=== PATIENT | male | born 1970 | race Caucasian/White ===

== ENCOUNTER 2021-03-19 16:50 | Emergency (ER) | payer OTHER ==
[~2021-03-19] VITALS: Ht 188 cm; Wt 100.0 kg
[2021-03-19] MEDS ORDERED: normal saline 1000ML IV soln IVB ONE (18:15)
[2021-03-19 18:50] LABS: BASOPHILS % (AUTO) 0.3 % (0-1); EOSINOPHILS # (AUTO) 0.1 X10'3 (0-0.9); EOSINOPHILS % (AUTO) 0.6 % (0-6); HEMATOCRIT 42.8 % (42.0-52.0); HEMOGLOBIN 14.4 g/dl (14.0-17.9); LYMPHOCYTES # (AUTO) 1.3 X10'3 (1.1-4.8); LYMPHOCYTES % (AUTO) 9.6 % (21-51); MEAN CORPUSCULAR HEMOGLOBIN 29.6 PG (27.0-31.0); MEAN CORPUSCULAR HGB CONC 33.7 g/dL (33.0-36.5); MEAN CORPUSCULAR VOLUME 87.9 FL (78-98); MEAN PLATELET VOLUME 7.4 FL (7.4-10.4); MONOCYTES % (AUTO) 7.1 % (2-12); NEUTROPHILS # (AUTO) 11.5 X10'3 (1.8-7.7); NEUTROPHILS % (AUTO) 82.4 % (42-75); PLATELET COUNT 247 X10'3 (140-440); RED BLOOD COUNT 4.86 X10'6 (4.70-6.10); RED CELL DISTRIBUTION WIDTH 14.4 % (11.5-14.5); WHITE BLOOD COUNT 13.9 X10'3 (4.5-11.0)
[2021-03-19 18:59] LABS: ALANINE AMINOTRANSFERASE 38 U/L (12-78); ALBUMIN 3.7 G/DL (3.4-5.0); ALBUMIN/GLOBULIN RATIO 1.4 (1.1-1.5); ALKALINE PHOSPHATASE 80 IU/L (46-116); ANION GAP 11 (8-16); ASPARTATE AMINO TRANSFERASE 24 U/L (10-37); BILIRUBIN,TOTAL 0.7 MG/DL (0.1-1.0); BLOOD UREA NITROGEN 14 MG/DL (7-18); BUN/CREATININE RATIO 12.7 (5.4-32.0); CHLORIDE 99 MMOL/L (99-107); GLUCOSE 104 MG/DL (70-104); POTASSIUM 3.6 MMOL/L (3.5-5.1); SODIUM 133 MMOL/L (135-145); TOTAL CARBON DIOXIDE 23.3 MMOL/L (24-32); TOTAL PROTEIN 6.4 G/DL (6.4-8.2); eGFR 71 ML/MIN
[2021-03-19] MEDS ORDERED: CYCL-1 PO (19:54)
[2021-03-19] MEDS ORDERED: cyclobenzaprine 10mg tablet PO ONE (20:00)
[2021-03-19 20:20] VITALS: BP 145/83
== END 2021-03-19 20:21 | disposition home or self-care (01) ==
LOC: ER 16:52
DX: S39.012A Strain of muscle, fascia and tendon of lower back, initial encounter (principal); R55 Syncope and collapse; M62.838 Other muscle spasm; G43.909 Migraine, unspecified, not intractable, without status migrainosus; F12.90 Cannabis use, unspecified, uncomplicated; Z79.899 Other long term (current) drug therapy; W18.30XA Fall on same level, unspecified, initial encounter; Y93.89 Activity, other specified; Y92.89 Other specified places as the place of occurrence of the external cause; Y99.8 Other external cause status
CPT/HCPCS: 36415; 80053; 85025; 93005; 99284; J7030